=== PATIENT | female | born 1945 | race Caucasian/White ===

== ENCOUNTER 2021-03-04 10:14 | Emergency (ER) | payer OTHER ==
[~2021-03-04 10:14] MED LIST: ACETAMINOPHEN325 MG PO; ANAFRANIL50 MG PO; ANTIVERT25 MG PO; AUGMENTIN 875-1 EACH PO; AZITHROMYCIN250 MG PO; AZO CRANBERRY1 EACH PO; BENTYL10 MG PO; BETHANECHOL CHL25 MG PO; CATAPRES0.1 MG PO; CIPRO500 MG PO; COREG 3.125M3.125 MG PO; DUONEB 2.5-0.5M1 AMP INH; DUONEB 2.5-0.5M1 AMP NEB; ELMIRON100 MG PO; FLEXERIL5 MG PO; FOLIC ACID1 MG PO; GLUCOTROL10 MG PO; GLUCOTROL5 MG PO; IFEREX 150150 MG PO; LANTUS100 UNIT/1 SQ; LASIX20 MG PO; LEVEMIR VI100 UNITS/ SC; LIDOCAINE 5% P1 EACH TOP; LIPITOR20 MG PO; MACROBID100 MG PO; MELATIN3 MG PO; METFORMIN HCL500 MG PO; MUCINEX 600MG600 MG PO; MUCINEX1200 MG PO; NAMENDA 10MG TA10 MG PO; NAPROSYN375 MG PO; NEURONTIN300 MG PO; NEXIUM 40MG CAP40 MG PO; NORCO 5-325 TA1 EACH PO; NORCO 7.5-3251 EACH PO; NORVASC10 MG PO; OYSTER SHELL C1 EAC1 PO; PANTOPRAZOLE SO40 MG PO; PERCOCET 5-3251 EACH PO; POLY-IRON150 MG PO; PROTONIX 40MG T40 MG PO; RHEUMATREX2.5 MG PO; SENOKOT8.6 MG PO; SEROPHENE50 MG PO; SYNTHROID25 MCG PO; ULTRA-LIGHT RO1 EACH XX; VITAMIN D250000 UNIT PO; VITAMIN D50000 UNIT PO; VOLTAREN **OUT50 MG PO; ZOFRAN8 MG PO; ZYVOX600 MG PO
[2021-03-04 10:54] LABS: BASOPHIL 0.7 % (0-2); EOSINOPHIL 1.2 % (0-7); HCT 41.9 % (37.0-47.0); HGB 12.3 g/dl (12.5-16.0); LYMPHOCYTE 20.3 % (15-48); MCH 23.2 pg (25.0-31.0); MCHC 29.4 g/dL (32.0-36.0); MCV 79.1 fL (78.0-100.0); MONOCYTE 6.6 % (0-12); MPV 10.9 fL (6.0-9.5); NRBC 0; PLT 226 K/uL (150-400); RDW 17.7 % (11.5-14.0); WBC 9.1 K/uL (4.0-10.5)
[2021-03-04 11:05] LABS: ALBUMIN 2.5 g/dL (3.4-5.0); BILIRUBIN - TOTAL 0.3 mg/dL (0.2-1.0); BUN/CREAT RATIO (CALC) 16.1 RATIO; CREATININE 0.87 mg/dL (0.51-0.95); POTASSIUM 3.8 mmol/L (3.5-5.1); TOTAL PROTEIN 7.5 g/dL (6.4-8.2)
[2021-03-04 12:18] LABS: BILIRUBIN 1+ mg/dL (NEGATIVE); BLOOD TRACE-INTACT Ery/uL (NEGATIVE); COLOR YELLOW (YELLOW); GLUCOSE (U) NORMAL (NORMAL); LEUKOCYTES 1+ Leu/uL (NEGATIVE); NITRITE POSITIVE (NEGATIVE); PROTEIN 3+ mg/dL (NEGATIVE); SPECIFIC GRAVITY 1.025 (1.001-1.030); UROBILINOGEN 0.2 mg/dL (0.2-1.0)
[2021-03-04 12:21] LABS: CLARITY CLOUDY (CLEAR)
[2021-03-04 12:28] LABS: URINARY WBC TNTC
[2021-03-04 12:29] LABS: BACTERIA 3+; SQUAMOUS EPITHELIAL CELLS RARE; URINARY RBC RARE
[2021-03-04] MEDS ORDERED: CIPRO500 MG PO (13:05)
== END 2021-03-04 15:47 | disposition home or self-care (01) ==
LOC: FER 10:14
PROVIDERS: Emergency Medicine
DX: N39.0 Urinary tract infection, site not specified (principal); J44.9 Chronic obstructive pulmonary disease, unspecified; I10 Essential (primary) hypertension; E11.9 Type 2 diabetes mellitus without complications; Z88.8 Allergy status to other drugs, medicaments and biological substances
CPT/HCPCS: 36415; 36600; 71045; 80053; 81001; 82803; 84484; 85025; 93005; J0696

== ENCOUNTER 2021-03-22 20:15 | Day surgery (SDCO) | payer MEDICARE, OTHER ==
[~2021-03-22] VITALS: Ht 160 cm; Wt 99.8 kg
[2021-03-22 20:37] LABS: BASOPHIL 0.4 % (0-2); EOSINOPHIL 0.3 % (0-7); HCT 44.6 % (37.0-47.0); HGB 12.7 g/dl (12.5-16.0); LYMPHOCYTE 16.1 % (15-48); MCH 22.8 pg (25.0-31.0); MCHC 28.5 g/dL (32.0-36.0); MCV 80.1 fL (78.0-100.0); MONOCYTE 3.7 % (0-12); MPV 10.6 fL (6.0-9.5); NEUTROPHIL 79.4 % (41-80); NRBC 0; PLT 302 K/uL (150-400); RBC 5.57 M/uL (4.20-5.40); RDW 17.5 % (11.5-14.0); WBC 7.8 K/uL (4.0-10.5)
[2021-03-22 20:59] LABS: ALBUMIN 3.2 g/dL (3.4-5.0); BILIRUBIN - TOTAL 0.2 mg/dL (0.2-1.0); BUN/CREAT RATIO (CALC) 26.2 RATIO; CREATININE 1.3 mg/dL (0.51-0.95); GLOBULIN (CALCULATION) 4.3 g/dL; POTASSIUM 5.9 mmol/L (3.5-5.1); TOTAL PROTEIN 7.5 g/dL (6.4-8.2)
[2021-03-22 22:22] LABS: BILIRUBIN NEGATIVE (NEGATIVE); BLOOD NEGATIVE Ery/uL (NEGATIVE); CLARITY CLEAR (CLEAR); COLOR YELLOW (YELLOW); GLUCOSE (U) NORMAL (NORMAL); LEUKOCYTES NEGATIVE Leu/uL (NEGATIVE); NITRITE NEGATIVE (NEGATIVE); PROTEIN 3+ mg/dL (NEGATIVE); SPECIFIC GRAVITY >=1.030 (1.001-1.030); UROBILINOGEN 0.2 mg/dL (0.2-1.0)
[2021-03-22 22:26] LABS: AMPHETAMINES NEGATIVE (NEGATIVE); BARBITURATES NEGATIVE (NEGATIVE); ECSTASY (MDMA) NEGATIVE (NEGATIVE); MARIJUANA (THC) NEGATIVE (NEGATIVE); METHADONE NEGATIVE (NEGATIVE); OPIATES POSITIVE (NEGATIVE); OXYCODONE NEGATIVE (NEGATIVE)
[2021-03-22 22:27] LABS: CORONAVIRUS 2019 SARS-COV-2 NEGATIVE (NEGATIVE); INFLUENZA A NAA NEGATIVE (NEGATIVE)
[2021-03-22 22:31] LABS: AMORPHOUS URATES CRYSTALS MODERATE; BACTERIA 3+
[2021-03-23] MEDS ORDERED: NEURONTIN300 MG PO (03:36)
[2021-03-23] MEDS ORDERED: HYDROCODON-ACE1 EAC2 PO (03:38)
[2021-03-23] MEDS ORDERED: PROTONIX 40MG T40 MG PO (03:40)
[2021-03-23] MEDS ORDERED: MACROBID100 MG PO (03:40)
[2021-03-23] MEDS ORDERED: DRISDOL50000 UNIT PO (03:41)
[2021-03-23] MEDS ORDERED: ELAVIL25 MG PO (03:41)
[2021-03-23] MEDS ORDERED: LEVEMIR VI100 UNITS/ SC (03:43)
[2021-03-23] MEDS ORDERED: NOVOLOG VI100 UNIT/1 SC (03:44)
[2021-03-23 06:33] LABS: BASOPHIL 0.3 % (0-2); EOSINOPHIL 0.3 % (0-7); HCT 37.9 % (37.0-47.0); LYMPHOCYTE 10.4 % (15-48); MCH 22.8 pg (25.0-31.0); MCV 78.6 fL (78.0-100.0); MONOCYTE 5.3 % (0-12); MPV 10.4 fL (6.0-9.5); NEUTROPHIL 83.3 % (41-80); NRBC 0; PLT 240 K/uL (150-400); RBC 4.82 M/uL (4.20-5.40); RDW 17.5 % (11.5-14.0); WBC 11.1 K/uL (4.0-10.5)
[2021-03-23 06:53] LABS: CREATININE 0.94 mg/dL (0.51-0.95)
--- NOTE | 2021-03-23 15:18 | NUR ---
[employer] MAINTENANCE WITNESS PT FALL WHILE TRYING TO GET OUT OF BED. PT FELL "GRACEFULLY" TO HER BUTTOCK. RN ASSESSED. NO SIGNS OF INJURY NOTED. PT PUT BACK INTO BED WITH STAFF ASSIST AND GAIT BELT. IV WAS RESTARTED. NOTIFIED. NO NEW ORDERS AT THIS TIME. EVENT TOOK PLACE AT 1500
[2021-03-24 06:49] LABS: BASOPHIL 0.6 % (0-2); EOSINOPHIL 2.1 % (0-7); HCT 41.8 % (37.0-47.0); HGB 12.3 g/dl (12.5-16.0); LYMPHOCYTE 17.8 % (15-48); MCH 22.9 pg (25.0-31.0); MCHC 29.4 g/dL (32.0-36.0); MONOCYTE 5.4 % (0-12); MPV 11.3 fL (6.0-9.5); NEUTROPHIL 73.8 % (41-80); NRBC 0; PLT 232 K/uL (150-400); RBC 5.36 M/uL (4.20-5.40); RDW 17.8 % (11.5-14.0); WBC 11.7 K/uL (4.0-10.5)
[2021-03-24 07:28] LABS: BUN/CREAT RATIO (CALC) 19.4 RATIO; CREATININE 0.67 mg/dL (0.51-0.95); POTASSIUM 4.3 mmol/L (3.5-5.1)
[2021-03-25 05:48] LABS: BASOPHIL 0.9 % (0-2); EOSINOPHIL 3.1 % (0-7); HCT 42.7 % (37.0-47.0); HGB 12.2 g/dl (12.5-16.0); LYMPHOCYTE 26.9 % (15-48); MCH 22.1 pg (25.0-31.0); MCHC 28.6 g/dL (32.0-36.0); MCV 77.5 fL (78.0-100.0); MONOCYTE 6.9 % (0-12); MPV 10.8 fL (6.0-9.5); NRBC 0; PLT 249 K/uL (150-400); RBC 5.51 M/uL (4.20-5.40); RDW 17.6 % (11.5-14.0); WBC 9.3 K/uL (4.0-10.5)
[2021-03-25 06:06] LABS: BUN/CREAT RATIO (CALC) 24.7 RATIO; CREATININE 0.81 mg/dL (0.51-0.95); POTASSIUM 4.2 mmol/L (3.5-5.1)
--- NOTE | 2021-03-25 11:48 | NUR ---
SPOKE WITH DAUGHTER, AKIL, THIS DATE. [id number]. SHE WANTS HER MOTHER TO RETURN BACK TO HER APT. SHE REPORTS THAT HER MOTHER IS CURRENT WITH [facility], AND THAT SHE HAS A CAREGIVER SO MANY HOURS A WEEK. SHE STATES THAT SHE AND HER SISTER TAKE HER MOTHER FOOD AND THAT HER CAREGIVER ALSO FIXES HER FOOD WELL. PT. HAS A ROLLATOR. ADVISED DR. CRANE AND NURSE.
[2021-03-25] MEDS ORDERED: AMOXICILLIN500 MG PO (14:02)
[2021-03-25] MEDS ORDERED: ZYVOX600 MG PO (16:31)
--- NOTE | 2021-03-25 17:06 | NUR ---
DR. CRANE ADVISED THAT HE WAS CHANGING PT. ABX TO [facility]. CONTACTED [facility] AND SPOKE WITH SILKE WHO ADVISED THAT THIS WOULD REQUIRE A PA. SUBMITTED REQUEST THROUGH [facility]. [facility] APPROVED. TC TO SILKE, ADVISED THAT MEDICATION HAD BEEN APPROVED. SILKE STATED THAT THE MEDICATION WENT THROUGH WITH NO COPAY. ADVSED DR. CRANE.
== END 2021-03-25 16:48 | disposition home health service (06) ==
LOC: FER 20:15 → FMS 03-23 01:04
PROVIDERS: Allergy & Immunology Allergy; Internal Medicine; Nurse Practitioner; ADMIT Internal Medicine
DX: N39.0 Urinary tract infection, site not specified (principal); B95.2 Enterococcus as the cause of diseases classified elsewhere; G93.41 Metabolic encephalopathy; E11.9 Type 2 diabetes mellitus without complications; I11.0 Hypertensive heart disease with heart failure; I50.22 Chronic systolic (congestive) heart failure; E03.9 Hypothyroidism, unspecified; E78.5 Hyperlipidemia, unspecified; J44.9 Chronic obstructive pulmonary disease, unspecified; G47.33 Obstructive sleep apnea (adult) (pediatric); K59.00 Constipation, unspecified; K21.9 Gastro-esophageal reflux disease without esophagitis; M19.90 Unspecified osteoarthritis, unspecified site; I25.10 Atherosclerotic heart disease of native coronary artery without angina pectoris; E66.3 Overweight; Z68.38 Body mass index [BMI] 38.0-38.9, adult; Z86.73 Personal history of transient ischemic attack (TIA), and cerebral infarction without residual deficits; Z79.4 Long term (current) use of insulin; Z79.899 Other long term (current) drug therapy; Z88.8 Allergy status to other drugs, medicaments and biological substances; Z16.11 Resistance to penicillins; Z16.23 Resistance to quinolones and fluoroquinolones; Z16.29 Resistance to other single specified antibiotic; Z20.822 Contact with and (suspected) exposure to COVID-19
CPT/HCPCS: 36415; 36600; 70450; 71250; 80048; 80053; 80305; 81001; 82140; 82803; 82962; 83605; 84145; 84443; 84484; 85025; 87040; 87076; 87088; 87186; 92523; 93005; 94660; 97163; 97166; 97530-GP; 97535; G0378; J0696; J2310; J7030; J7120; U0002

== ENCOUNTER 2021-05-01 04:33 | Inpatient (IN) | payer MEDICARE, OTHER ==
[~2021-05-01] VITALS: Ht 157.5 cm; Wt 100.4 kg
[~2021-05-01 04:33] MED LIST changes: +AMOXICILLIN500 MG PO; +DRISDOL50000 UNIT PO; +ELAVIL25 MG PO; +HYDROCODON-ACE1 EAC2 PO; +NOVOLOG VI100 UNIT/1 SC
[2021-05-01 04:54] LABS: BASOPHIL 0.5 % (0-2); EOSINOPHIL 2.4 % (0-7); HCT 40.2 % (37.0-47.0); HGB 11.3 g/dl (12.5-16.0); LYMPHOCYTE 12.8 % (15-48); MCH 22.6 pg (25.0-31.0); MCHC 28.1 g/dL (32.0-36.0); MCV 80.6 fL (78.0-100.0); MONOCYTE 1.9 % (0-12); MPV 11.1 fL (6.0-9.5); NEUTROPHIL 82.1 % (41-80); NRBC 0; PLT 308 K/uL (150-400); RBC 4.99 M/uL (4.20-5.40); RDW 19.1 % (11.5-14.0); WBC 5.8 K/uL (4.0-10.5)
[2021-05-01 05:21] LABS: LACTIC ACID 2.6 mmol/L (0.4-1.9)
[2021-05-01 05:22] LABS: BILIRUBIN - TOTAL 0.3 mg/dL (0.2-1.0); BUN/CREAT RATIO (CALC) 19.4 RATIO; CREATININE 1.03 mg/dL (0.51-0.95); GLOBULIN (CALCULATION) 4.3 g/dL; TOTAL PROTEIN 7.3 g/dL (6.4-8.2)
[2021-05-01 05:23] LABS: POTASSIUM 6.9 mmol/L (3.5-5.1)
[2021-05-01 06:11] LABS: BILIRUBIN NEGATIVE (NEGATIVE); BLOOD NEGATIVE Ery/uL (NEGATIVE); CLARITY CLEAR (CLEAR); COLOR YELLOW (YELLOW); GLUCOSE (U) 2+ mg/dL (NORMAL); LEUKOCYTES NEGATIVE Leu/uL (NEGATIVE); NITRITE POSITIVE (NEGATIVE); PROTEIN 3+ mg/dL (NEGATIVE); SPECIFIC GRAVITY 1.025 (1.001-1.030); UROBILINOGEN 0.2 mg/dL (0.2-1.0)
[2021-05-01 06:21] LABS: BACTERIA 3+
[2021-05-01 06:45] LABS: CORONAVIRUS 2019 SARS-COV-2 NEGATIVE (NEGATIVE); INFLUENZA A NAA NEGATIVE (NEGATIVE)
[2021-05-01] MEDS ORDERED: COREG 6.25MG6.25 MG PO (09:59)
[2021-05-01] MEDS ORDERED: NORVASC5 MG PO (10:00)
[2021-05-01] MEDS ORDERED: HYDROCODON-ACE1 EAC2 PO (10:10)
[2021-05-02 08:56] LABS: HCT 37.5 % (37.0-47.0); HGB 11.2 g/dl (12.5-16.0); MCHC 29.9 g/dL (32.0-36.0); MCV 77.2 fL (78.0-100.0); MPV 10.8 fL (6.0-9.5); RBC 4.86 M/uL (4.20-5.40); RDW 19.7 % (11.5-14.0)
[2021-05-02 08:57] LABS: WBC 10.5 K/uL (4.0-10.5)
[2021-05-02 09:13] LABS: BUN/CREAT RATIO (CALC) 29.7 RATIO; CREATININE 0.91 mg/dL (0.51-0.95); MAGNESIUM 2.2 mg/dL (1.8-2.4); POTASSIUM 3.9 mmol/L (3.5-5.1)
[2021-05-03 05:48] LABS: BASOPHIL 0.3 % (0-2); EOSINOPHIL 0.7 % (0-7); HCT 40.4 % (37.0-47.0); HGB 11.9 g/dl (12.5-16.0); LYMPHOCYTE 35.6 % (15-48); MCH 22.8 pg (25.0-31.0); MCHC 29.5 g/dL (32.0-36.0); MCV 77.2 fL (78.0-100.0); MONOCYTE 6.9 % (0-12); NEUTROPHIL 56.3 % (41-80); NRBC 0; PLT 351 K/uL (150-400); RBC 5.23 M/uL (4.20-5.40); RDW 19.7 % (11.5-14.0); WBC 11.1 K/uL (4.0-10.5)
[2021-05-03 06:23] LABS: BUN/CREAT RATIO (CALC) 38.6 RATIO; CREATININE 0.83 mg/dL (0.51-0.95); MAGNESIUM 2.2 mg/dL (1.8-2.4)
[2021-05-03] MEDS ORDERED: PREDNISONE 20MG20 MG PO (09:23)
[2021-05-03] MEDS ORDERED: LASIX40 MG PO (09:23)
[2021-05-03] MEDS ORDERED: POTASSIUM CHLO20 ME2 PO (09:26)
[2021-05-03] MEDS ORDERED: VENTOLIN HFA IN18 GM INH (09:26)
--- NOTE | 2021-05-03 12:51 | NUR ---
05/03/21 Ms. Osborne lives at [facility]. She is followed by [facility] and [facility] / [facility]. [facility] was notified of admission and discharge via [employer]. Ms. Osborne also has caregivers for 8 hours 5 days a week. This is presumed to be through a Waiver program, Ms. Osborne has home 02, C-PAP, rollator, and wc. She reports that her C-PAP is not working correcting and she does not know the name of the company supplying the C-PAP. [facility] reports to provide the C-PAP and will contact the Ms. Osborne.
== END 2021-05-03 18:11 | disposition home health service (06) | DRG 291 ==
LOC: FER 04:33 → FICU 07:02 → FMS 05-02 09:14
PROVIDERS: Emergency Medicine; Internal Medicine; ADMIT Internal Medicine
DX: I11.0 Hypertensive heart disease with heart failure (principal); I50.23 Acute on chronic systolic (congestive) heart failure; J96.01 Acute respiratory failure with hypoxia; J44.1 Chronic obstructive pulmonary disease with (acute) exacerbation; E87.2 Acidosis; Z20.822 Contact with and (suspected) exposure to COVID-19; E66.01 Morbid (severe) obesity due to excess calories; I25.10 Atherosclerotic heart disease of native coronary artery without angina pectoris; K21.9 Gastro-esophageal reflux disease without esophagitis; G47.33 Obstructive sleep apnea (adult) (pediatric); E87.5 Hyperkalemia; E78.5 Hyperlipidemia, unspecified; E11.9 Type 2 diabetes mellitus without complications; E03.9 Hypothyroidism, unspecified; F32.A Depression, unspecified; F41.9 Anxiety disorder, unspecified; M19.90 Unspecified osteoarthritis, unspecified site; M54.30 Sciatica, unspecified side; Z68.39 Body mass index [BMI] 39.0-39.9, adult; Z99.81 Dependence on supplemental oxygen; Z87.440 Personal history of urinary (tract) infections; Z86.73 Personal history of transient ischemic attack (TIA), and cerebral infarction without residual deficits; Z90.49 Acquired absence of other specified parts of digestive tract; Z90.710 Acquired absence of both cervix and uterus; Z98.41 Cataract extraction status, right eye; Z98.42 Cataract extraction status, left eye; Z90.89 Acquired absence of other organs; Z84.1 Family history of disorders of kidney and ureter; Z79.4 Long term (current) use of insulin; Z79.84 Long term (current) use of oral hypoglycemic drugs; Z79.899 Other long term (current) drug therapy
CPT/HCPCS: 36415; 36600; 71045; 71275; 80048; 80053; 81001; 82803; 82962; 83036; 83605; 83735; 83880; 84132; 84145; 84484; 85025; 85379; 87040; 87076; 87088; 87186; 93005; 94640; 94660; 94664; 94760; 94762; J0610; J1650; J1815; J1940; J2543; J3370; J3475; J7030; J7050; J7512; Q9967; U0002

== ENCOUNTER 2021-05-04 13:57 | Day surgery (SDCO) | payer MEDICARE, OTHER ==
[~2021-05-04] VITALS: Ht 157.5 cm; Wt 97.1 kg
[~2021-05-04 13:57] MED LIST changes: +COREG 6.25MG6.25 MG PO; +LASIX40 MG PO; +NORVASC5 MG PO; +POTASSIUM CHLO20 ME2 PO; +PREDNISONE 20MG20 MG PO; +VENTOLIN HFA IN18 GM INH
[2021-05-04 15:25] LABS: BASOPHIL 0.3 % (0-2); EOSINOPHIL 0.7 % (0-7); HCT 47.6 % (37.0-47.0); LYMPHOCYTE 14.5 % (15-48); MCHC 29.4 g/dL (32.0-36.0); MCV 78.3 fL (78.0-100.0); MONOCYTE 6.5 % (0-12); MPV 10.4 fL (6.0-9.5); NEUTROPHIL 77.6 % (41-80); NRBC 0; PLT 404 K/uL (150-400); RBC 6.08 M/uL (4.20-5.40); RDW 20.3 % (11.5-14.0); WBC 15.7 K/uL (4.0-10.5)
[2021-05-04 15:44] LABS: BILIRUBIN 1+ mg/dL (NEGATIVE); BLOOD NEGATIVE Ery/uL (NEGATIVE); CLARITY CLEAR (CLEAR); GLUCOSE (U) NORMAL (NORMAL); LEUKOCYTES NEGATIVE Leu/uL (NEGATIVE); NITRITE NEGATIVE (NEGATIVE); PROTEIN 3+ mg/dL (NEGATIVE); SPECIFIC GRAVITY >=1.030 (1.001-1.030); UROBILINOGEN 0.2 mg/dL (0.2-1.0)
[2021-05-04 15:47] LABS: COLOR AMBER (YELLOW)
[2021-05-04 15:53] LABS: LACTIC ACID 0.8 mmol/L (0.4-1.9)
[2021-05-04 15:54] LABS: BACTERIA 2+
[2021-05-04 15:57] LABS: ALBUMIN 3.2 g/dL (3.4-5.0); BILIRUBIN - TOTAL 0.3 mg/dL (0.2-1.0); BUN/CREAT RATIO (CALC) 31.3 RATIO; CREATININE 1.34 mg/dL (0.51-0.95); GLOBULIN (CALCULATION) 5.3 g/dL; POTASSIUM 4.1 mmol/L (3.5-5.1); TOTAL PROTEIN 8.5 g/dL (6.4-8.2)
[2021-05-05 05:52] LABS: BASOPHIL 0.4 % (0-2); EOSINOPHIL 1.4 % (0-7); HCT 41.7 % (37.0-47.0); HGB 12.2 g/dl (12.5-16.0); LYMPHOCYTE 29.1 % (15-48); MCH 22.9 pg (25.0-31.0); MCHC 29.3 g/dL (32.0-36.0); MCV 78.2 fL (78.0-100.0); MONOCYTE 7.1 % (0-12); MPV 10.4 fL (6.0-9.5); NEUTROPHIL 61.6 % (41-80); NRBC 0; PLT 335 K/uL (150-400); RBC 5.33 M/uL (4.20-5.40); RDW 19.9 % (11.5-14.0); WBC 11.2 K/uL (4.0-10.5)
[2021-05-05 06:07] LABS: ALBUMIN 2.8 g/dL (3.4-5.0); BILIRUBIN - TOTAL 0.3 mg/dL (0.2-1.0); BUN/CREAT RATIO (CALC) 40.2 RATIO; CREATININE 1.17 mg/dL (0.51-0.95); POTASSIUM 4.3 mmol/L (3.5-5.1); TOTAL PROTEIN 6.8 g/dL (6.4-8.2)
--- NOTE | 2021-05-05 15:49 | NUR ---
05/05/21 Ms. Osborne lives at [facility]. She has a Waiver program which provides caregivers 8 hours / day 5 days per week. [facility] is current and have been notified of admission via [employer]. [facility], [facility], also follows Ms. Osborne. Pt has home 02, C-PAP, rollator, and wc. - Ms. Osborne has a fractured ankle and requires therpay. She and her daughter / POA, Azalea Garcia, would like SNF placement. [facility] has accepted Ms. Osborne for admission today. She meet criteria for EMS transport. - Report given to MS Maribel Nash
[2021-05-05] MEDS ORDERED: NORCO 5-325 TA1 EACH PO (16:00)
[2021-05-05] MEDS ORDERED: PREDNISONE 20MG20 MG PO (16:00)
== END 2021-05-05 19:48 ==
LOC: FER 13:57 → FMS 17:02
PROVIDERS: Emergency Medicine; ADMIT Internal Medicine
DX: S82.64XA Nondisplaced fracture of lateral malleolus of right fibula, initial encounter for closed fracture (principal); N17.9 Acute kidney failure, unspecified; T50.2X5A Adverse effect of carbonic-anhydrase inhibitors, benzothiadiazides and other diuretics, initial encounter; I11.0 Hypertensive heart disease with heart failure; I50.22 Chronic systolic (congestive) heart failure; E11.9 Type 2 diabetes mellitus without complications; J44.9 Chronic obstructive pulmonary disease, unspecified; E78.5 Hyperlipidemia, unspecified; G47.33 Obstructive sleep apnea (adult) (pediatric); E03.9 Hypothyroidism, unspecified; K21.9 Gastro-esophageal reflux disease without esophagitis; M19.90 Unspecified osteoarthritis, unspecified site; J96.11 Chronic respiratory failure with hypoxia; D72.829 Elevated white blood cell count, unspecified; R79.89 Other specified abnormal findings of blood chemistry; F03.90 Unspecified dementia, unspecified severity, without behavioral disturbance, psychotic disturbance, mood disturbance, and anxiety; E66.01 Morbid (severe) obesity due to excess calories; Z68.39 Body mass index [BMI] 39.0-39.9, adult; Z86.73 Personal history of transient ischemic attack (TIA), and cerebral infarction without residual deficits; Z87.440 Personal history of urinary (tract) infections; Z79.4 Long term (current) use of insulin; Z79.899 Other long term (current) drug therapy; Z88.8 Allergy status to other drugs, medicaments and biological substances; Z20.822 Contact with and (suspected) exposure to COVID-19; W19.XXXA Unspecified fall, initial encounter; X50.1XXA Overexertion from prolonged static or awkward postures, initial encounter
CPT/HCPCS: 36415; 71046; 73610; 80053; 81001; 82962; 83605; 83880; 85025; 87076; 87088; 87186; 94640; 94660; 97163; 97166; 97530-GP; 97535; G0378; J0696; J1815; J7512; U0002

== ENCOUNTER 2021-08-12 10:22 | Emergency (ER) | payer MEDICARE, OTHER ==
[2021-08-12 11:25] LABS: BASOPHIL 0.1 % (0-2); EOSINOPHIL 2.4 % (0-7); HCT 36.4 % (37.0-47.0); HGB 10.2 g/dl (12.5-16.0); LYMPHOCYTE 13.2 % (15-48); MCH 21.4 pg (25.0-31.0); MCV 76.5 fL (78.0-100.0); MONOCYTE 7.5 % (0-12); NEUTROPHIL 76.5 % (41-80); NRBC 0; PLT 238 K/uL (150-400); RBC 4.76 M/uL (4.20-5.40); RDW 18.4 % (11.5-14.0); WBC 7.6 K/uL (4.0-10.5)
[2021-08-12 11:35] LABS: ALBUMIN 2.9 g/dL (3.4-5.0); BILIRUBIN - TOTAL 0.3 mg/dL (0.2-1.0); CREATININE 1.25 mg/dL (0.51-0.95); GLOBULIN (CALCULATION) 4.5 g/dL; POTASSIUM 4.3 mmol/L (3.5-5.1); TOTAL PROTEIN 7.4 g/dL (6.4-8.2)
[2021-08-12 11:55] LABS: BILIRUBIN NEGATIVE (NEGATIVE); BLOOD NEGATIVE Ery/uL (NEGATIVE); CLARITY CLEAR (CLEAR); COLOR YELLOW (YELLOW); GLUCOSE (U) NORMAL (NORMAL); LEUKOCYTES NEGATIVE Leu/uL (NEGATIVE); NITRITE NEGATIVE (NEGATIVE); PROTEIN 2+ mg/dL (NEGATIVE); SPECIFIC GRAVITY >=1.030 (1.001-1.030); UROBILINOGEN 0.2 mg/dL (0.2-1.0); pH 5.5 (5.0-9.0)
[2021-08-12 12:06] LABS: GRANULAR CASTS TRACE
[2021-08-12 12:07] LABS: URINARY RBC RARE
[2021-08-12 12:12] LABS: MUCOUS TRACE
[2021-08-12] MEDS ORDERED: METRONIDAZOLE500 MG PO ×2 (12:53→13:43)
[2021-08-12] MEDS ORDERED: CIPRO500 MG PO ×2 (12:53→12:56)
[2021-08-12] MEDS ORDERED: AZITHROMYCIN250 MG PO (13:43)
== END 2021-08-12 12:58 | disposition home or self-care (01) ==
LOC: FER 10:22
PROVIDERS: Emergency Medicine
DX: J18.9 Pneumonia, unspecified organism (principal); R19.7 Diarrhea, unspecified; Z20.822 Contact with and (suspected) exposure to COVID-19; Z88.1 Allergy status to other antibiotic agents; Z88.8 Allergy status to other drugs, medicaments and biological substances
CPT/HCPCS: 36415; 71045; 80053; 81001; 85025; 87045; 87046; 87324; 87449; 99284; U0002

== ENCOUNTER 2021-12-19 17:11 | Emergency (ER) | payer MEDICARE, OTHER ==
[~2021-12-19 17:11] MED LIST changes: +METRONIDAZOLE500 MG PO
[2021-12-19 18:01] LABS: BASOPHIL 0.7 % (0-2); EOSINOPHIL 2.4 % (0-7); HCT 42.5 % (37.0-47.0); HGB 13.2 g/dl (12.5-16.0); LYMPHOCYTE 29.6 % (15-48); MCH 27.4 pg (25.0-31.0); MCHC 31.1 g/dL (32.0-36.0); MCV 88.4 fL (78.0-100.0); MONOCYTE 7.9 % (0-12); NEUTROPHIL 59.3 % (41-80); NRBC 0; PLT 164 K/uL (150-400); RBC 4.81 M/uL (4.20-5.40); WBC 6.8 K/uL (4.0-10.5)
[2021-12-19 18:15] LABS: ALBUMIN 3.1 g/dL (3.4-5.0); BILIRUBIN - TOTAL 0.2 mg/dL (0.2-1.0); BUN/CREAT RATIO (CALC) 20.6 RATIO; CREATININE 1.07 mg/dL (0.51-0.95); GLOBULIN (CALCULATION) 4.3 g/dL; MAGNESIUM 1.8 mg/dL (1.8-2.4); POTASSIUM 4.5 mmol/L (3.5-5.1); TOTAL PROTEIN 7.4 g/dL (6.4-8.2)
[2021-12-19 18:24] LABS: LACTIC ACID 1.1 mmol/L (0.4-1.9)
[2021-12-19 19:34] LABS: CORONAVIRUS 2019 SARS-COV-2 NEGATIVE (NEGATIVE); INFLUENZA A NAA NEGATIVE (NEGATIVE)
== END 2021-12-19 21:32 | disposition home or self-care (01) ==
LOC: FER 17:11
PROVIDERS: Emergency Medicine
DX: J44.1 Chronic obstructive pulmonary disease with (acute) exacerbation (principal); R07.89 Other chest pain; E11.9 Type 2 diabetes mellitus without complications; Z88.8 Allergy status to other drugs, medicaments and biological substances; Z79.4 Long term (current) use of insulin; Z20.822 Contact with and (suspected) exposure to COVID-19
CPT/HCPCS: 36415; 71250; 80053; 83605; 83735; 83880; 84145; 84439; 84484; 85025; 87040; 93005; J1885; U0002

== ENCOUNTER → 2022-01-13 | Day surgery (SDC) | payer MEDICARE, OTHER ==
[~2022-01-13] VITALS: Ht 161.3 cm; Wt 99.8 kg
[~2022-01-13] MED LIST changes: +ATORVASTATIN CA20 MG PO; +BETHANECHOL CHL25 M1 PO; +CERTAVITE SR-A1 EACH PO; +DESYREL50 MG PO; +DOCUSATE SODIU100 MG PO; +FEROSUL325 MG PO; +OMEPRAZOLE40 MG PO; +TRAZODONE HCL150 MG PO
== END | disposition home or self-care (01) ==
LOC: FAS 13:27
DX: E11.36 Type 2 diabetes mellitus with diabetic cataract (principal); H26.493 Other secondary cataract, bilateral

== ENCOUNTER → 2022-02-10 | Day surgery (SDC) | payer MEDICARE, OTHER ==
[~2022-02-10] VITALS: Ht 161.3 cm; Wt 99.8 kg
== END | disposition home or self-care (01) ==
LOC: FAS 12:47
DX: E11.36 Type 2 diabetes mellitus with diabetic cataract (principal); H26.493 Other secondary cataract, bilateral

== ENCOUNTER 2022-03-28 13:28 | Inpatient (IN) | payer MEDICARE, OTHER ==
[~2022-03-28] VITALS: Ht 161.3 cm; Wt 94.9 kg
[2022-03-28 14:01] LABS: BASOPHIL 0.8 % (0-2); EOSINOPHIL 1.6 % (0-7); HCT 41.6 % (37.0-47.0); HGB 12.6 g/dl (12.5-16.0); LYMPHOCYTE 27.2 % (15-48); MCH 27.5 pg (25.0-31.0); MCHC 30.3 g/dL (32.0-36.0); MCV 90.8 fL (78.0-100.0); MPV 10.6 fL (6.0-9.5); NRBC 0; PLT 219 K/uL (150-400); RBC 4.58 M/uL (4.20-5.40); RDW 14.6 % (11.5-14.0); WBC 7.6 K/uL (4.0-10.5)
[2022-03-28 14:17] LABS: INR 0.94 (0.9-1.2); PROTHROMBIN TIME 12.3 SECONDS (11.9-13.9)
[2022-03-28 14:21] LABS: CREATININE 0.89 mg/dL (0.51-0.95); POTASSIUM 4.8 mmol/L (3.5-5.1)
[2022-03-28 14:25] LABS: ALBUMIN 3.1 g/dL (3.4-5.0); BILIRUBIN - TOTAL 0.2 mg/dL (0.2-1.0); GLOBULIN (CALCULATION) 4.5 g/dL; TOTAL PROTEIN 7.6 g/dL (6.4-8.2)
[2022-03-28 15:07] LABS: CORONAVIRUS 2019 SARS-COV-2 NEGATIVE (NEGATIVE); INFLUENZA A NAA NEGATIVE (NEGATIVE)
[2022-03-28] MEDS ORDERED: HYDROCODON-ACE1 EAC2 PO (18:45)
[2022-03-29 06:14] LABS: HCT 41.6 % (37.0-47.0); HGB 12.8 g/dl (12.5-16.0); MCH 27.6 pg (25.0-31.0); MCHC 30.8 g/dL (32.0-36.0); MCV 89.8 fL (78.0-100.0); MPV 10.4 fL (6.0-9.5); RBC 4.63 M/uL (4.20-5.40); RDW 14.6 % (11.5-14.0); WBC 6.1 K/uL (4.0-10.5)
[2022-03-29 06:49] LABS: BUN/CREAT RATIO (CALC) 30.3 RATIO; CREATININE 0.89 mg/dL (0.51-0.95)
--- NOTE | 2022-03-29 17:12 | NUR ---
PATIENTS IV IN R HAND STARTED TO LEAK ONCE CONNECTED TO ANTIBIOTIC FLUIDS. PATIENT PULLED THE IV OUT. PLACED A NEW IV TO LEFT HAND 22 G. IV INFUSING AT 125ML/HR.
--- NOTE | 2022-03-31 06:20 | NUR ---
PT REFUSED TO GET IN BED, SHE STATED THAT SHE IS MORE COMFORTABLE SITTING IN THE RECLINER, ENCOURAGED PT TO SHIFT WT, B/P WAS ELEVATED THIS SHIFT AND BLOOD GLUCOSE WAS 300. PT REFUSED 2359 SCHEDULED NORCO- PT STATED THAT SHE WAS NOT IN PAIN AND DOES NOT NEED IT. PT [id number] ABLE TO MAKE WANTS AND NEEDS KNOWN, CALL [facility] IN REACH CHAIR IN LOCKED POSITION.
[2022-03-31] MEDS ORDERED: AZITHROMYCIN250 MG PO (12:03)
[2022-03-31] MEDS ORDERED: CEFDINIR300 MG PO (12:03)
[2022-03-31] MEDS ORDERED: PREDNISONE20 MG PO (12:03)
--- NOTE | 2022-03-31 14:54 | NUR ---
03/31 [facility]. [facility] was notified of patient's discharge.
== END 2022-03-31 14:05 | disposition home health service (06) | DRG 193 ==
LOC: FER 13:28 → FTCU 15:47
PROVIDERS: Internal Medicine; Nurse Practitioner Acute Care; ADMIT Internal Medicine
PROC: 5A09357 Assistance with Respiratory Ventilation, Less than 24 Consecutive Hours, Continuous Positive Airway Pressure (ICD-10-PCS; principal; 2022-03-29)
PROC: 5A09357 Assistance with Respiratory Ventilation, Less than 24 Consecutive Hours, Continuous Positive Airway Pressure (ICD-10-PCS; 2022-03-30)
PROC: B24BZZZ Ultrasonography of Heart with Aorta (ICD-10-PCS; 2022-03-31)
DX: J18.9 Pneumonia, unspecified organism (principal); G93.41 Metabolic encephalopathy; J96.21 Acute and chronic respiratory failure with hypoxia; J96.22 Acute and chronic respiratory failure with hypercapnia; J98.11 Atelectasis; J44.1 Chronic obstructive pulmonary disease with (acute) exacerbation; J44.0 Chronic obstructive pulmonary disease with (acute) lower respiratory infection; I50.32 Chronic diastolic (congestive) heart failure; E87.2 Acidosis; E66.2 Morbid (severe) obesity with alveolar hypoventilation; Z20.822 Contact with and (suspected) exposure to COVID-19; E11.65 Type 2 diabetes mellitus with hyperglycemia; I11.0 Hypertensive heart disease with heart failure; K59.09 Other constipation; E78.5 Hyperlipidemia, unspecified; E03.9 Hypothyroidism, unspecified; F41.9 Anxiety disorder, unspecified; F32.A Depression, unspecified; K21.9 Gastro-esophageal reflux disease without esophagitis; Z90.49 Acquired absence of other specified parts of digestive tract; Z90.710 Acquired absence of both cervix and uterus; Z99.81 Dependence on supplemental oxygen; Z88.8 Allergy status to other drugs, medicaments and biological substances; Z79.899 Other long term (current) drug therapy; Z28.311 Partially vaccinated for COVID-19
CPT/HCPCS: 36415; 36600; 71045; 71275; 80048; 80053; 82803; 82962; 83036; 83880; 84443; 84484; 85025; 85610; 85730; 86140; 93005; 94640; 94660; 94667; 94668; 94760; 94762; J0456; J0696; J1650; J1815; J2930; J7050; Q9967; U0002